=== PATIENT | female | born 1945 | race Caucasian/White ===

== ENCOUNTER → 2018-05-01 09:49 | Outpatient (CLI) | payer OTHER, SELFPAY ==
--- NOTE | 2018-05-01 | DI.RAD.S_ITS ---
PROCEDURE: [place] ABDOMEN 1V (BARIUM ENEMA) INDICATIONS: Colon cancer screening TECHNIQUE: One view of the abdomen acquired. COMPARISON: None. FINDINGS: Surgical changes and devices: Sutures across the upper abdomen noted. Bowel: Bowel gas pattern is abnormal with colonic obstipation. Soft tissues: No suspicious abdominal calcifications. Visualized solid organ contours appear normal in size. Bones: No suspicious bony lesions. IMPRESSION: Colonic obstipation, the patient reports no response to bowel preparation for barium enema. Dictated by: Manish Gurrola M.D. on 05/01/2018 at 10:49 Approved by: Manish Gurrola M.D. on 05/01/2018 at 10:49
== END ==
PROVIDERS: PCP Family Medicine; Visit Provider Family Medicine
DX: Z12.11 Encounter for screening for malignant neoplasm of colon (principal); K59.00 Constipation, unspecified
CPT/HCPCS: 74018

== ENCOUNTER → 2018-06-05 09:50 | Outpatient (CLI) | payer OTHER, SELFPAY ==
--- NOTE | 2018-06-05 | DI.RAD.S_ITS ---
PROCEDURE: FL BARIUM ENEMA W AIR CONTRAST INDICATIONS: COLON CANCER SCREEN COMPARISON: [facility], , [place] ABDOMEN 1V (BARIUM ENEMA), 05/01/2018, 10:03. 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 No suspicious abdominal calcifications. Visualized solid organ contours are normal in size. No suspicious bony lesions. There are surgical sutures in upper abdomen. 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 Colon: There is adequate air-contrast opacification from the rectum to the cecum. No strictures, ulcers, polyps, or masses are seen. Haustral folds are normal in thickness throughout. There are numerous colonic diverticula, most numerous in sigmoid colon. IMPRESSION: 1. No polypoid lesions or masses identified. 2. Chronic diverticulosis. Dictated by: Neeru Buitrago M.D. on 06/05/2018 at 16:23 Approved by: Neeru Buitrago M.D. on 06/05/2018 at 16:26
== END ==
PROVIDERS: PCP Family Medicine; Visit Provider Family Medicine
DX: Z12.11 Encounter for screening for malignant neoplasm of colon (principal); K57.30 Diverticulosis of large intestine without perforation or abscess without bleeding
CPT/HCPCS: 74280

== ENCOUNTER → 2022-03-21 12:20 | Outpatient (CLI) | payer MEDICARE, SELFPAY ==
[2022-03-21 13:07] LABS: COVID19 -Nasal RAPID Negative (Negative)
== END ==
PROVIDERS: PCP Family Medicine; Visit Provider Specialist
DX: Z01.812 Encounter for preprocedural laboratory examination (principal); Z20.822 Contact with and (suspected) exposure to COVID-19
CPT/HCPCS: 87635

== ENCOUNTER → 2022-04-08 08:10 | Outpatient (CLI) | payer MEDICARE, SELFPAY ==
[2022-04-08 08:44] LABS: COVID19 -Nasal RAPID Negative (Negative)
== END ==
PROVIDERS: PCP Family Medicine; Visit Provider Obstetrics & Gynecology
DX: Z01.812 Encounter for preprocedural laboratory examination (principal); Z20.822 Contact with and (suspected) exposure to COVID-19
CPT/HCPCS: 87635

== ENCOUNTER 2022-04-08 09:48 | Day surgery (SDC) | payer MEDICARE, SELFPAY ==
[2022-04-07 12:10] VITALS: BMI 26.9
[2022-04-08 10:12] VITALS: BMI 26.9
[2022-04-08 10:16] VITALS: BP 168/78; PULSE 88; RESP 15; TEMP 37; O2SAT 98
[2022-04-08] MEDS: LACTATED RINGERS 1,000 ML 100 ML IV ×2 (10:19→11:30)
--- NOTE | 2022-04-08 10:35 | PM.PREOP ---
Pre-operative Note COVID-19 COVID-19 status: Negative Result date/Date tested (Pos, Neg/Pending): 04/08/22 Criteria for continued procedure: Expected advancement of disease process Interval Note History & Physical reviewed/Exam performed by Physician: Yes Changes to H&P: No
[2022-04-08] MEDS: CEFAZOLIN 2 GM/20 ML SYRINGE IV (11:03)
--- NOTE | 2022-04-08 11:18 | SUR.OPER ---
Lithotomy on padded OR bed, head on pillow, arms secured on padded arm boards at <90 degrees abduction. Legs secured in padded yellow fins stirrups.
[2022-04-08] MEDS: ACETAMINOPHEN IV 1,000 MG/100 ML VIAL 400 MG IV (11:24)
[2022-04-08] MEDS: BUPIVACAINE 0.5% W/ EPI (PF) 30 ML VIAL INJ (11:24)
[2022-04-08 12:22] VITALS: BP 123/56; PULSE 90; RESP 11; TEMP 36.2; O2SAT 96
--- NOTE | 2022-04-08 12:26 | P.OP_ITS ---
Operative Date/Time/Diagnoses Date of procedure: 04/08/22 Time of procedure: 12:26 Pre-op diagnosis: Uterine prolapse Post-op diagnosis: same Procedure & Clinicians Procedure: [place] colpocleisis Same procedure as scheduled: Yes Indications: Uterine prolapse Surgeon: Kia Ellis Click Yes if Unassisted: Yes Anesthesia Type: General Operative Notes Findings: No cystocele, mild rectocele, uterine prolapse to the hymen Closure Type: primary Specimen(s): none sent Estimated Blood Loss (mL): 30 Blood products transfused: none Procedure in detail: Patient was brought to the operating room where she was in a supine position in [facility] and underwent a light general anesthetic. She was prepped and draped in the usual sterile fashion. Her bladder was drained. Antibiotics were in prior to beginning of the case. Warming was in place. Pulsatile stockings were in place. Area on anterior and posterior wall of the prolapse were marked with a marking pen and injected with a dilute solution of half percent Marcaine with epinephrine. The skin was incised with a scalpel and undermined with and removed removed with Metzenbaum scissors. 2-0 Vicryl suture was used in an interrupted fashion to close anterior to posterior on the sides creating a tunnel from the cervix to the external area. 0 Vicryl suture interrupted was placed from the anterior cervical fascia to the posterior cervical fascia to invert the cervix. The vaginal incision was closed from anterior to posterior fully closing the vagina anterior-posterior.. Counts of instruments and sponges were correct. Patient went to recovery room in good condition. Complications: none Post-operative Condition: stable Disposition: same day surgery Plan for aftercare: Home when awake and stable
[2022-04-08 12:27] VITALS: BP 124/56; PULSE 89; RESP 19; O2SAT 96
[2022-04-08 12:33] VITALS: BP 125/62; PULSE 89; RESP 11; O2SAT 96
[2022-04-08 12:37] VITALS: BP 127/64; PULSE 83; RESP 15; TEMP 36.3; O2SAT 97
[2022-04-08 12:40] VITALS: BP 134/56; PULSE 90; RESP 16; TEMP 36.2; O2SAT 97
--- NOTE | 2022-04-08 13:39 | SUR.PHASEII ---
Stable, denied pain
== END 2022-04-08 13:10 | disposition home or self-care (01) ==
PROVIDERS: PCP Family Medicine; Referring Provider Specialist; Visit Provider Specialist
PROC: (CPT 57120; principal; 2022-04-08 11:15)
DX: N81.3 Complete uterovaginal prolapse (principal); Z20.822 Contact with and (suspected) exposure to COVID-19; Z01.812 Encounter for preprocedural laboratory examination
CPT/HCPCS: 57120; 87635; C9803; J0131; J0690; J1100; J2704; J3010